=== PATIENT | female | born 1975 | race Caucasian/White ===

== ENCOUNTER → 2020-12-02 15:59 | Outpatient (BNVA) | payer OTHER, SELFPAY | PROVIDERS: Visit Provider Psychiatry & Neurology Psychiatry | DX: Z79.899 Other long term (current) drug therapy (principal); Z03.89 Encounter for observation for other suspected diseases and conditions ruled out; F32.9 Major depressive disorder, single episode, unspecified; F41.1 Generalized anxiety disorder; F15.21 Other stimulant dependence, in remission; F10.21 Alcohol dependence, in remission | CPT/HCPCS: 80053; 80061; 83036; 84443; 85025 ==